=== PATIENT | female | born 1940 | race Caucasian/White ===

== ENCOUNTER 2017-04-12 12:54 | Emergency (ER) | payer MEDICARE ==
[~2017-04-12] VITALS: Ht 154.9 cm; Wt 70.0 kg
[~2017-04-12 12:54] MED LIST: CLONIDINE0.1 MG; CLONIDINE0.1 MG OR; COLACE100 MG PO; DARVOCET N-100100 - OR; EC ASPIRIN325 MG PO; ENALAPRIL10 MG PO; EQ ASPIRIN325 MG OR; FLULAVAL IM; GABAPENTIN300 MG PO; HYDRALAZINE25 MG PO; HYDROCODONE/ACE1 TAB PO; LEVOSTATIN PO; LISINOPRIL20 MG PO; LORTAB 7.5 PO; LORTAB5 PO; LOVASTATIN20 MG PO; LYRICA75 MG PO; MAXIDE1 COMBO PO; MAXZIDE OR; MAXZIDE-2537.5 MG/TA PO; NAPROSYN375 MG OR; NEXIUM40 M1 PO; OMEPRAZOLE40 MG PO; PRED FORTE1 % OP; PREDNISONE10 MG PO; TYLENOL500 MG PO; ZOFRAN4 MG/TAB PO
[2017-04-12 13:20] LABS: HEMATOCRIT 35.3 % (37.0-47.0); IMMATURE GRANULOCYTES 0.6 % (0.0-1.0); MEAN CORPUSCULAR HGB 30.2 pG CALC (26.0-32.0); MEAN CORPUSCULAR HGB CONC 31.2 g/L CALC (32.0-36.0); NEUT# 9.77 thou/uL (2.00-7.15); RED BLOOD COUNT 3.64 mill/uL (4.20-5.60); RED CELL DISTRI WIDTH 14.6 % (11.5-15.5)
[2017-04-12 13:42] LABS: ANION GAP 14 (6-22 (CALC)); BUN 13 mg/dL (8-23); BUN/CREATININE RATIO 17 (12-20 (CALC)); CALCIUM 9.1 mg/dL (8.4-10.2); CARBON DIOXIDE 28 mmol/l (22-30); CHLORIDE 94 mmol/l (95-108); CREATININE 0.8 mg/dL (0.5-1.0); GFR > 60 ML/MIN (>=60 (CALC)); GFR FOR AFR.AMER. > 60 ML/MIN (>=60 (CALC)); GLUCOSE 158 mg/dL (82-115); LIPASE 286 u/l (23-300); POTASSIUM 4.3 mmol/l (3.5-5.1); SODIUM 131 mmol/l (137-146)
[2017-04-12] MEDS ORDERED: GLAUCOMA EYE DROPS (15:20)
[2017-04-12 15:54] LABS: INFLUENZA A NONE DETECTED (NONE DETECT); INFLUENZA B NONE DETECTED (NONE DETECT)
[2017-04-12 16:07] LABS: URINE BILIRUBIN - DIPSTICK NEGATIVE (NEGATIVE); URINE BLOOD DIPSTICK NEGATIVE (NEGATIVE); URINE COLOR YELLOW; URINE GLUCOSE - DIPSTICK NEGATIVE (NEGATIVE); URINE KETONE NEGATIVE (NEGATIVE); URINE LEUK ESTERASE TRACE (NEGATIVE); URINE NITRITE - DIPSTICK NEGATIVE (Negative); URINE PH 6.5 (4.5-8.0); URINE PROTEIN - DIPSTICK NEGATIVE (NEG-TRACE); URINE UROBILINOGEN - DIPSTICK 0.2 E.U./dL (0.2)
[2017-04-12 16:09] LABS: URINE CLARITY CLEAR
[2017-04-12 16:54] VITALS: BP 207/93
--- NOTE | 2017-04-15 11:22 | NUR ---
CULTURE RESULTS SEND TO [facility] ASAEL FOY AT [phone] ON 04/14/17 PRELIMINARY GRAM(+) AT 932AM AND ON 04/15/17 FINAL STAPH EPIDERMIDIS C+S SENT AT 1105 AM 1 OF 2 SET (+)
== END 2017-04-12 16:54 | disposition short-term general hospital (02) ==
LOC: ED 12:54 → ED-I 14:21 → ED 16:54
PROVIDERS: Family Medicine
DX: J18.9 Pneumonia, unspecified organism (principal); R53.1 Weakness; R42 Dizziness and giddiness; R06.02 Shortness of breath; R10.84 Generalized abdominal pain; J90 Pleural effusion, not elsewhere classified; C14.0 Malignant neoplasm of pharynx, unspecified; C78.7 Secondary malignant neoplasm of liver and intrahepatic bile duct; B95.7 Other staphylococcus as the cause of diseases classified elsewhere
CPT/HCPCS: Q9967